=== PATIENT | female | born 1955 | race Caucasian/White ===

== ENCOUNTER 2021-08-05 08:40 | Day surgery (SDC) | payer MEDICARE, BC ==
[~2021-08-05] VITALS: Ht 172.7 cm; Wt 70.8 kg
[~2021-08-05 08:40] MED LIST: BUPR150ER PO; Buspirone HCl15 MG PO; Chantix1 MG PO; DULO60 PO; IBUP800 PO; OXYB5 PO; TRAZ150T57 PO
--- NOTE | 2021-08-05 09:50 | NUR ---
Ambulatory in Day Surgery. Patient states colon prep results clear. History, Chart, Medications and Allergies reviewed before start of procedure.Lungs clear T/O to Auscultation. Patient confirms NPO status and agrees with scheduled surgery. Pre-Op teaching done. Pt verbalizes understanding. Patient States Post-Procedure ride home has been arranged.
--- NOTE | 2021-08-05 10:06 | NUR ---
08/05/21 1006 Isadora Santos History, Chart, Medications and Allergies reviewed before start of procedure. Patient confirms NPO status and agrees with scheduled surgery. 3-LEAD EKG REVIEWED WITH PHYSICIAN PRIOR TO START OF PROCEDURE. MONITOR INTACT WITH CONTINUOUS PULSE OXIMETRY AND INTERMITTENT BP. PATIENT DETERMINED TO BE ASA APPROPRIATE FOR PROPOFOL SEDATION PRIOR TO START OF PROCEDURE BY .
--- NOTE | 2021-08-05 11:15 | NUR ---
Patient up to Ambulate independently. Gait steady. Discharge instructions reviewed with patient. Patient verbalizes understanding. Copy given to patient to take home. Patient States Post-Procedure ride home has been arranged. Discharged via wheelchair to private car for ride home.
== END 2021-08-05 11:15 | disposition home or self-care (01) ==
LOC: ORSCMMR 08:40 → ORD 09:45 → ORSCSDS 09:45 → ORSCMMR 11:15
PROVIDERS: Surgery
PROC: 0DJD8ZZ Inspection of Lower Intestinal Tract, Via Natural or Artificial Opening Endoscopic (ICD-10-PCS; principal; 2021-08-05 09:45)
DX: Z12.11 Encounter for screening for malignant neoplasm of colon (principal); Z86.010 Personal history of colon polyps; F41.9 Anxiety disorder, unspecified; K21.9 Gastro-esophageal reflux disease without esophagitis; G47.33 Obstructive sleep apnea (adult) (pediatric); F17.210 Nicotine dependence, cigarettes, uncomplicated; Z79.899 Other long term (current) drug therapy
CPT/HCPCS: J2704; J7120

== ENCOUNTER 2023-07-04 14:19 | Day surgery (SDC) | payer MEDICARE, BC ==
[~2023-07-04] VITALS: Ht 172.7 cm; Wt 85.5 kg
[~2023-07-04 14:19] MED LIST changes: +CHANTIX1 MG; +CLIMARA1 EACH TOP; +ESTRADIOL (TWI1 EAC4
[2023-07-04] MEDS ORDERED: DESV50 (14:35)
[2023-07-04 16:25] VITALS: BP 121/74
== END 2023-07-04 16:27 | disposition home or self-care (01) ==
LOC: ORSCSDS 14:19
PROVIDERS: Surgery
PROC: 0DB68ZX Excision of Stomach, Via Natural or Artificial Opening Endoscopic, Diagnostic (ICD-10-PCS; principal; 2023-07-04 15:30)
PROC: 0DB48ZX Excision of Esophagogastric Junction, Via Natural or Artificial Opening Endoscopic, Diagnostic (ICD-10-PCS; principal; 2023-07-04 15:30)
DX: K20.90 Esophagitis, unspecified without bleeding (principal); N18.9 Chronic kidney disease, unspecified; F41.9 Anxiety disorder, unspecified; G47.30 Sleep apnea, unspecified; F17.210 Nicotine dependence, cigarettes, uncomplicated; Z79.899 Other long term (current) drug therapy
CPT/HCPCS: 88305; 88342; J0461; J2001; J2405; J2704; J7120; Q9968

== ENCOUNTER 2024-08-30 06:35 | Day surgery (SDC) | payer MEDICARE, BC ==
[~2024-08-30 06:35] MED LIST changes: +DESV50
== END 2024-08-30 23:00 | disposition home or self-care (01) ==
LOC: WOUND 06:35
DX: T23.261A Burn of second degree of back of right hand, initial encounter (principal); G47.30 Sleep apnea, unspecified; F17.290 Nicotine dependence, other tobacco product, uncomplicated
CPT/HCPCS: G0463